=== PATIENT | male | born 2000 | race African-American/Black ===

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

== ENCOUNTER 2019-01-21 20:40 | Emergency (ER) | payer OTHER ==
[~2019-01-21] VITALS: Ht 177.8 cm; Wt 98.6 kg
[2019-01-21 22:26] VITALS: BP 132/65
== END 2019-01-21 22:47 | disposition home or self-care (01) ==
LOC: EMS 20:40
DX: S46.811A Strain of other muscles, fascia and tendons at shoulder and upper arm level, right arm, initial encounter (principal); F17.210 Nicotine dependence, cigarettes, uncomplicated; F12.90 Cannabis use, unspecified, uncomplicated; W50.0XXA Accidental hit or strike by another person, initial encounter; Y93.71 Activity, boxing; Y92.89 Other specified places as the place of occurrence of the external cause; Y99.8 Other external cause status
CPT/HCPCS: 29105; 99406

== ENCOUNTER 2019-09-20 00:32 | Emergency (ER) | payer OTHER ==
[~2019-09-20] VITALS: Ht 180.3 cm; Wt 113.6 kg
[2019-09-20 00:56] VITALS: BP 103/50
== END 2019-09-20 01:40 | disposition left against medical advice (07) ==
LOC: EMS 00:32
DX: M25.522 Pain in left elbow (principal); Z53.21 Procedure and treatment not carried out due to patient leaving prior to being seen by health care provider